=== PATIENT | female | born 1995 | race Two or more races ===

== ENCOUNTER 2022-09-30 22:32 | Emergency (ER) | payer BC, MEDICAID ==
[~2022-09-30] VITALS: Ht 170.2 cm; Wt 81.8 kg
[2022-09-30 23:11] LABS: Basophils # (auto) 0 10 ^3/uL (0-0.2); Basophils % (auto) 0.2 % (0.0-2.0); Eosinophils # (auto) 0.1 10 ^3/uL (0-0.8); Eosinophils % (auto) 0.5 % (0.0-7.0); Hematocrit 37.6 % (36.0-46.0); Hemoglobin 12.9 g/dL (12.2-16.2); Lymphocytes # (auto) 1.2 10 ^3/uL (0.4-5.4); Lymphocytes % (auto) 11.6 % (10.0-50.0); Mean Corpuscular Hemoglobin 30.2 pg (28.0-32.0); Mean Corpuscular Hgb Conc. 34.2 g/dL (32.0-36.0); Mean Corpuscular Volume 88.3 fL (80.0-100.0); Monocytes # (auto) 0.7 10 ^3/uL (0-1.3); Monocytes % (auto) 6.5 % (0.0-12.0); Neutrophils # (auto) 8.3 10 ^3/uL (1.6-8.6); Neutrophils % (auto) 81.2 % (37.0-80.0); Red Blood Cells 4.26 10^6/uL (4.0-5.20); Red Cell Distribution Width 13.6 % (11.8-14.3); White Blood Cell 10.2 10^3/uL (4.4-10.8)
[2022-09-30 23:13] LABS: Urine Bacteria FEW /hpf (None Seen); Urine Blood 1+ /uL (Negative); Urine Specific Gravity 1.011 (1.001-1.035); Urine WBC 15 /hpf (0 - 5)
[2022-09-30 23:28] LABS: Albumin 3.6 g/dL (3.4-5.0); BUN/Creatinine Ratio 9.4; Calcium 8.4 mg/dL (8.5-10.1); Potassium 3.5 mmol/L (3.5-5.1)
[2022-09-30 23:31] LABS: Bilirubin, Total 0.5 mg/dL (0.2-1.0); Total Protein 7.2 g/dL (6.4-8.2)
[2022-10-01] MEDS ORDERED: NITR-87 PO (01:21)
[2022-10-01 02:20] VITALS: BP 95/53
== END 2022-10-01 02:21 | disposition home or self-care (01) ==
LOC: ER 22:32
DX: O23.31 Infections of other parts of urinary tract in pregnancy, first trimester (principal); N39.0 Urinary tract infection, site not specified; R10.2 Pelvic and perineal pain; Z3A.01 Less than 8 weeks gestation of pregnancy; Z88.0 Allergy status to penicillin
CPT/HCPCS: 36415; 76801; 80053; 81001; 81025; 84702; 85025

== ENCOUNTER 2023-03-02 23:53 | Observation (INO) | payer BC ==
[~2023-03-02] VITALS: Ht 170.2 cm; Wt 90.7 kg
[~2023-03-02 23:53] MED LIST: NITR-87 PO
[2023-03-03] MEDS ORDERED: LACTATED RINGER'S 1,000 ML IV ONE (01:00)
[2023-03-03] MEDS: LACTATED RINGER'S 1,000 ML IV ONE ×2 (01:00→02:25)
[2023-03-03] MEDS: TERBUTALINE SULFATE 1 MG/ML 1ML VIAL SC ONE ×2 (01:13→01:14)
[2023-03-03] MEDS: TERBUTALINE SULFATE 1 MG/ML 1ML VIAL SC SCH ×3 (01:43→04:52)
[2023-03-03 02:25] LABS: Alcohol, Urine < 3.0 mg/dL (0-10); Amphetamine Screen, Urine NEGATIVE (NEGATIVE); Barbiturate Scree,Urine NEGATIVE (NEGATIVE); Benzodiazephine Screen, Urine NEGATIVE (NEGATIVE); Cannabinoid Screen, Urine NEGATIVE (NEGATIVE); Cocaine Screen, Urine NEGATIVE (NEGATIVE); Opiate Scree,Urine NEGATIVE (NEGATIVE); Phencyclidine Screen, Urine NEGATIVE (NEGATIVE)
[2023-03-03] MEDS ORDERED: PREN27TA7 OR (02:58)
[2023-03-03] MEDS ORDERED: ACETAMINOPHEN 325 MG TAB PO ONE (03:43)
[2023-03-03] MEDS ORDERED: NIFEdipine 10 MG CAP ONE (03:43)
[2023-03-03] MEDS ORDERED: NIFEdipine 10 MG CAP PO ONE (03:45)
[2023-03-03] MEDS ORDERED: ACETAMINOPHEN 325 MG TAB PO PRN (04:00)
== END 2023-03-03 04:49 | disposition home or self-care (01) ==
LOC: LDRP 23:53
PROVIDERS: ADMIT Obstetrics & Gynecology; ATTEND Obstetrics & Gynecology
DX: O26.893 Other specified pregnancy related conditions, third trimester (principal); R10.31 Right lower quadrant pain; Z3A.28 28 weeks gestation of pregnancy
CPT/HCPCS: 59025; 76700; 76815; 80307; 81002; 94760; 96360; 96372